=== PATIENT | male | born 1960 | race Caucasian/White ===

== ENCOUNTER 2018-12-28 23:40 | Emergency (ER) | payer SELFPAY ==
[~2018-12-28] VITALS: Ht 167.6 cm; Wt 158.8 kg
[2018-12-28 23:40] VITALS: BP 154/68
--- NOTE | 2018-12-28 23:42 | NUR ---
PT GURPREET ZAPIENS. TAKEN TO BED 4
[2018-12-28] MEDS ORDERED: FUROSEMIDE 40 MG TAB PO ONE (23:50)
--- NOTE | 2018-12-28 23:50 | NUR ---
PT IS A 58 Y/O MALE BIB EMS WHO PRESENTS TO THE ED C/O BILATERAL LOWER LEG SWELLING. PT STATES THAT IT HAS BEEN GOING ON X5 WEEKS, REPORTS THAT HE WAS SEEN AT [facility] AND WAS ADMITTED. PT REPORTS 10/10 ACHING BILATERAL LOWER LEG PAIN, +3 PITTING EDEMA NOTED, CMS INTACT. PT DENIES CP, SOB, N/V/D. PT AWAKE AND ALERT, RR EVEN/UNLABORED. PT REPOSITIONED FOR COMFORT, BED IN LOWEST POSITION. ER MD DR. PERALES NOTIFIED. WILL CONTINUE TO MONITOR. hx CVA X2, HTN, asthma NKA
[2018-12-29 00:25] LABS: BASOPHILS # (AUTO) 0.1 K/uL (0.00-0.22); BASOPHILS % (AUTO) 0.6 % (0.0-2.0); EOSINOPHILS # (AUTO) 0.1 K/uL (0-0.4); EOSINOPHILS % (AUTO) 0.7 % (0.0-4.0); HEMATOCRIT 33.7 % (36-52); HEMOGLOBIN 10.6 g/dL (12.0-18.0); LYMPHOCYTES # (AUTO) 1.2 K/uL (2.0-11.5); LYMPHOCYTES % (AUTO) 11.1 % (20.5-51.1); MEAN CORPUSCULAR HEMOGLOBIN 24 pg (27-31); MEAN CORPUSCULAR HGB CONC 32 g/dL (33-37); MEAN CORPUSCULAR VOLUME 74.4 fL (80-94); MONOCYTES # (AUTO) 0.8 K/uL (0.8-1.0); MONOCYTES % (AUTO) 7.7 % (1.7-9.3); NEUTROPHILS # (AUTO) 8.5 K/uL (1.8-7.7); NEUTROPHILS % (AUTO) 79.9 % (42.2-75.2); PLATELET COUNT (AUTO) 360 K/uL (140-450); RED BLOOD CELL COUNT(AUTO) 4.53 MIL/uL (4.20-6.10); WHITE BLOOD COUNT (AUTO) 10.6 K/uL (4.8-10.8)
--- NOTE | 2018-12-29 00:50 | NUR ---
Ultrasound at bedside.
[2018-12-29 01:13] LABS: ANION GAP 15.2 (8-16); CARBON DIOXIDE 25.3 mmol/L (21-32); CREATININE 1.1 mg/dL (0.7-1.3); POTASSIUM 3.5 mmol/L (3.5-5.1)
[2018-12-29 01:18] LABS: ALBUMIN 2.9 g/dL (3.4-5.0); TOTAL BILIRUBIN 0.9 mg/dL (0.0-1.0)
--- NOTE | 2018-12-29 01:42 | NUR ---
PT TOOK OF VITAL MACHINE CORDS AND REFUSED VITALS, ER MADE AWARE
--- NOTE | 2018-12-29 01:45 | NUR ---
HOMELESS PACKET WITH RESOURCES GIVEN TO PATIENT. PT STATED HE DID NOT NEED IT BECAUSE HE HAD SOMEWHERE TO GO. GAVE TO HIM AND HIGHLIGHTED SOME LOCAL PLACES INCASE PT NEEDS AN ALTERNATIVE. PT SIGNED THE HOMELESS WAIVER. ER MD MADE AWRE OF STATUS.
[2018-12-29 01:46] VITALS: BP 154/68
--- NOTE | 2018-12-29 01:46 | NUR ---
Patient discharged with v/s stable. Written and verbal after care instructions given and explained. Patient alert, oriented and verbalized understanding of instructions . All questions addressed prior to discharge. ID band removed. Patient advised to follow up with PMD. Rx of LASIX GIVEN given. Patient educated on indication of medication including possible reaction and side effects. Opportunity to ask questions provided and answered.
== END 2018-12-29 01:46 | disposition home or self-care (01) ==
LOC: MED 23:40
DX: I87.2 Venous insufficiency (chronic) (peripheral) (principal); J45.909 Unspecified asthma, uncomplicated; I11.0 Hypertensive heart disease with heart failure; I50.9 Heart failure, unspecified; Z86.73 Personal history of transient ischemic attack (TIA), and cerebral infarction without residual deficits; Z59.0 Homelessness
CPT/HCPCS: 36415; 71045; 80053; 83605; 83880; 84484; 85025; 87040; 93971; 99284; Q0092; 93005